=== PATIENT | female | born 1980 | race American Indian/Alaskan Native ===

== ENCOUNTER 2019-09-06 07:27 | Emergency (ER) | payer BC ==
--- NOTE | 2019-09-06 10:52 | XRay Report ---
CHEST 2 VIEWS INDICATION / CLINICAL INFORMATION: shortness of breath. COMPARISON: None available. FINDINGS: SUPPORT DEVICES: None. HEART / MEDIASTINUM: No significant abnormality. LUNGS / PLEURA: No significant pulmonary or pleural abnormality. No pneumothorax. ADDITIONAL FINDINGS: No significant additional findings. IMPRESSION: 1. No acute findings. Signer Name: Jensen Layne MD Signed: 09/06/2019 10:47 AM Workstation Name: [id number]
[2019-09-06 12:04] LABS: Basophils % (Auto) 0.8 % (0.0-1.8); Eosinophils % (Auto) 0.8 % (0.0-4.3); Hematocrit 41.7 % (30.3-42.9); Lymphocytes % (Auto) 36.4 % (13.4-35.0); Mean Corpuscular HGB Conc 34 % (30-34); Mean Corpuscular Volume 91 fl (79-97); Monocytes # (Auto) 0.4 K/mm3 (0.0-0.8); Monocytes % (Auto) 7.5 % (0.0-7.3); Platelet Count 279 K/mm3 (140-440); Red Blood Count 4.59 M/mm3 (3.65-5.03); Red Cell Distribution Width 13.7 % (13.2-15.2)
[2019-09-06 12:07] LABS: BUN/Creatinine Ratio 20; Blood Urea Nitrogen 12 mg/dL (7-17)
[2019-09-06 12:08] LABS: Alanine Aminotransferase 20 units/L (7-56); Albumin 4.6 g/dL (3.9-5); Calcium 9.7 mg/dL (8.4-10.2); Hemolysis Index 6
[2019-09-06] MEDS ORDERED: hydrALAZINE 25 MG TAB PO ONE (13:08)
[2019-09-06 13:14] LABS: HCG Qualitative,Urine Negative (Negative)
--- NOTE | 2019-09-06 13:18 | Emergency Department Report ---
ED Shortness of Breath HPI - General Chief Complaint: Dyspnea/Respdistress Stated Complaint: SOB Time Seen by Provider: 09/06/19 12:46 Source: patient Mode of arrival: Ambulatory Limitations: No Limitations - History of Present Illness Initial Comments: 39-year-old -Gabonese female patient with history of hypertension presents with complaints of shortness of breath and chest tightness for the past 2 days. She denies any cough, fever/chills/sweats, or nausea/vomiting/abdominal pain. She also denies any pain in her chest, however states it just feels tight. Patient states she did have a recent 4-hour flight from [place] 1 week ago and admits to mild intermittent chronic pedal edema, however denies any leg pain, history of DVT/PE/CO/CVA, hormone use, or hemoptysis. Patient states that shortness of breath occurs both at rest and with exertion and is intermittent. Blood pressure noted to be elevated at 169/105; patient states she is compliant with her blood pressure medications and that her pressure normally runs 130/90. She admits to a 7/10 headache in severity currently, but denies any dizziness, vision changes, difficulty with speech, numbness/tingling/weakness in her limbs, or confusion. - Related Data Allergies Allergy/AdvReac Type Severity Reaction Status Date / Time No Known Allergies Allergy Unverified 09/06/19 07:43 ED Review of Systems ROS: Stated complaint: SOB Other details as noted in HPI Constitutional: denies: chills, diaphoresis, fever, malaise, weakness Eyes: denies: eye pain, vision change ENT: denies: throat pain Respiratory: shortness of breath, SOB with exertion, SOB at rest. denies: cough Cardiovascular: denies: chest pain, palpitations Gastrointestinal: denies: nausea, vomiting, diarrhea Genitourinary: denies: frequency Skin: denies: rash, lesions Neurological: headache. denies: weakness, numbness, paresthesias, confusion, abnormal gait Psychiatric: denies: anxiety ED Past Medical Hx - Past Medical History Previous Medical History?: Yes Hx Hypertension: Yes - Surgical History Past Surgical History?: No - Social History Smoking Status: Never Smoker Substance Use Type: Prescribed ED Physical Exam - General Limitations: No Limitations General appearance: alert, in no apparent distress, obese - Head Head exam: Present: atraumatic, normocephalic - Eye Eye exam: Present: normal appearance - ENT ENT exam: Present: mucous membranes moist - Neck Neck exam: Present: normal inspection, full ROM - Respiratory Respiratory exam: Present: normal lung sounds bilaterally. Absent: respiratory distress, wheezes, rales, rhonchi, chest wall tenderness - Cardiovascular Cardiovascular Exam: Present: regular rate, normal rhythm. Absent: systolic murmur, diastolic murmur, rubs, gallop - GI/Abdominal GI/Abdominal exam: Present: soft, normal bowel sounds - Extremities Exam Extremities exam: Absent: calf tenderness (No swelling noted bilaterally in legs or feet) - Neurological Exam Neurological exam: Present: alert, oriented X3, normal gait. Absent: motor sensory deficit - Psychiatric Psychiatric exam: Present: normal affect, normal mood - Skin Skin exam: Present: warm, dry, intact, normal color. Absent: rash, cyanosis, diaphoretic, petechiae ED Course Vital Signs 09/06/19 09/06/19 09/06/19 07:38 11:38 13:02 Temperature 98.3 F Pulse Rate 93 H Respiratory 18 17 Rate Blood Pressure 169/105 183/123 Blood Pressure [Left] O2 Sat by Pulse 99 99 Oximetry 09/06/19 09/06/19 13:23 14:27 Temperature Pulse Rate 85 82 Respiratory 18 Rate Blood Pressure 183/123 Blood Pressure 138/99 [Left] O2 Sat by Pulse 100 Oximetry ED Medical Decision Making - Lab Data Result diagrams: 09/06/19 11:21 09/06/19 11:21 Critical care attestation.: If time is entered above; I have spent that time in minutes in the direct care of this critically ill patient, excluding procedure time. ED Disposition Clinical Impression: Shortness of breath, Uncontrolled hypertension Disposition: DC-01 TO HOME OR SELFCARE Is pt being admited?: No Condition: Stable Instructions: COVID-19, Dyspnea (ED), Hypertension (ED) Referrals: PRIMARY CARE,MD [Primary Care Provider] - 2-3 Days Forms: Work/School Release Form(ED)
[2019-09-06 14:28] VITALS: BP 138/99
== END 2019-09-06 14:53 | disposition home or self-care (01) ==
LOC: ED 07:27
DX: R06.02 Shortness of breath (principal); I10 Essential (primary) hypertension
CPT/HCPCS: 36415; 71046; 80053; 81025; 83880; 84484; 85025; 85379; 93005

== ENCOUNTER 2020-04-29 12:20 | Emergency (ER) | payer BC ==
[2020-04-29 12:49] VITALS: BP 143/84
--- NOTE | 2020-04-29 13:38 | Emergency Department Report ---
ED Fall HPI - General Chief Complaint: Extremity Injury, Upper Stated Complaint: RT ARM INJURY Time Seen by Provider: 04/29/20 13:28 Source: patient Mode of arrival: Ambulatory - History of Present Illness Initial Comments: 40-year-old obese F Croatian female excellently tripped over comforter landing onto her stretch her right hand causing pain to the left forearm and elbow and lower humerus region. Reports minimal swelling but does have pain with palpation and when attempts to extend the arm fully also pain with with opposed supination and pronation. Complaint: fall Fall Witnessed: no Place Fall Occurred: home Loss of Consciousness: none Prolonged Down Time?: no Symptoms Prior to Fall: none Location - Extremities: Right: Arm, Elbow, Forearm - Related Data Previous Rx's Medication Instructions Recorded Last Taken Type Acetaminophen/Codeine [Tylenol #3] 1 tab PO Q6H PRN #20 tab 04/29/20 Unknown Rx Allergies Allergy/AdvReac Type Severity Reaction Status Date / Time No Known Allergies Allergy Unverified 09/06/19 07:43 ED Review of Systems ROS: Stated complaint: RT ARM INJURY Other details as noted in HPI Comment: All other systems reviewed and negative ED Past Medical Hx - Past Medical History Hx Hypertension: Yes - Surgical History Past Surgical History?: No - Social History Smoking Status: Never Smoker Substance Use Type: None - Medications Home Medications: Home Medications Medication Instructions Recorded Confirmed Last Taken Type Acetaminophen/Codeine [Tylenol #3] 1 tab PO Q6H PRN #20 tab 04/29/20 Unknown Rx ED Physical Exam - General Limitations: No Limitations General appearance: alert, in no apparent distress - Head Head exam: Present: atraumatic, normocephalic - Eye Eye exam: Present: normal appearance, PERRL, EOMI Pupils: Present: normal accommodation - ENT ENT exam: Present: normal exam, normal orophraynx, mucous membranes moist - Neck Neck exam: Present: normal inspection, full ROM - Respiratory Respiratory exam: Present: normal lung sounds bilaterally. Absent: respiratory distress, wheezes, rales, accessory muscle use, decreased breath sounds - Cardiovascular Cardiovascular Exam: Present: regular rate, normal rhythm. Absent: systolic murmur, diastolic murmur, rubs, gallop - GI/Abdominal GI/Abdominal exam: Present: soft, normal bowel sounds. Absent: tenderness, guarding, hyperactive bowel sounds, hypoactive bowel sounds - Extremities Exam Extremities exam: Present: normal inspection, normal capillary refill - Back Exam Back exam: Present: normal inspection, CVA tenderness (R), CVA tenderness (L) - Neurological Exam Neurological exam: Present: alert, oriented X3, CN II-XII intact - Psychiatric Psychiatric exam: Present: normal affect, normal mood - Skin Skin exam: Present: warm, dry, intact, normal color. Absent: rash ED Course Vital Signs 04/29/20 12:45 Temperature 98.9 F Pulse Rate 100 H Respiratory 20 Rate Blood Pressure 143/84 O2 Sat by Pulse 100 Oximetry - Orthopedic Splinting/Casting Injury #1 Side: right Upper Extremity Injury Location: upper arm, elbow Upper Extremity Immobilizer: posterior splint ED Medical Decision Making - Radiology Data Radiology results: report reviewed [facility] [address] [place] [address] XRay Report Signed Patient: JORDYN TORRES MR#: [id number] : 1980 Acct:[id number] Age/Sex: 40 / F ADM Date: 04/29/20 Loc: ED Attending Dr: Ordering Physician: RL SAMSON Date of Service: 04/29/20 Procedure(s): XR humerus 2+V RT Accession Number(s): [id number] cc: RL SAMSON Fluoro Time In Minutes: RIGHT HUMERUS 2 VIEWS RIGHT FOREARM 2 VIEWS INDICATION: fall pain forearm. COMPARISON: None. IMPRESSION: A moderate anterior and posterior joint effusion is identified at the elbow. A subtle nondisplaced radial head fracture is suspected. 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 The humerus and ulna are intact. Signer Name: Ulices Bains Jr, MD Signed: 04/29/2020 2:06 PM Workstation Name: [id number] Transcribed By: TTR Dictated By: ULICES BAINS JR, MD Electronically Authenticated By: ULICES BAINS JR, MD Signed Date/Time: 04/29/201405 DD/ 00 TD/TT: - Medical Decision Making Pulmonary female status post fall onto the right arms resulting in a root a right radial head fracture. 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 Will place in a posterior long-arm splint and sling have follow-up with orthopedic for definitive treatment. No signs of any other osseous injuries or internal derangement on examination Critical care attestation.: If time is entered above; I have spent that time in minutes in the direct care of this critically ill patient, excluding procedure time. ED Disposition Clinical Impression: Right radial head fracture Disposition: DC- TO HOME OR SELFCARE Is pt being admited?: No Does the pt Need Aspirin: No Condition: Stable Instructions: Cast or Splint Care, Adult, Ibbg-up-Gtni, Radial Head Fracture Prescriptions: Acetaminophen/Codeine [Tylenol #3] 1 tab PO Q6H PRN #20 tab PRN Reason: Pain Referrals: BEN HARRISON MD [Staff Physician] - 3-5 Days
--- NOTE | 2020-04-29 14:11 | XRay Report ---
RIGHT HUMERUS 2 VIEWS RIGHT FOREARM 2 VIEWS INDICATION: fall pain forearm. COMPARISON: None. IMPRESSION: A moderate anterior and posterior joint effusion is identified at the elbow. A subtle no ndisplaced radial head fracture is suspected. Mild osteoarthritic changes are identified at the elbo w. The humerus and ulna are intact. Signer Name: Ulices Bains Jr, MD Signed: 04/29/2020 2:06 PM Workstation Name: [id number]
== END 2020-04-29 14:58 | disposition home or self-care (01) ==
LOC: ED 12:20
DX: S52.124A Nondisplaced fracture of head of right radius, initial encounter for closed fracture (principal); I10 Essential (primary) hypertension; Z79.899 Other long term (current) drug therapy; W01.0XXA Fall on same level from slipping, tripping and stumbling without subsequent striking against object, initial encounter; Y93.89 Activity, other specified; Y92.009 Unspecified place in unspecified non-institutional (private) residence as the place of occurrence of the external cause; Y99.8 Other external cause status

== ENCOUNTER 2020-06-18 09:52 | Outpatient (CLI) | payer BC ==
--- NOTE | 2020-06-18 11:45 | XRay Report ---
RIGHT ELBOW 3 VIEWS INDICATION / CLINICAL INFORMATION: NONDISPLACED FRACTURE OF HEAD OF RIGHT RADIUS, S52.124A. COMPARISON: None available. FINDINGS: Moderately displaced fracture of the radial head. A joint effusion is present. Signer Name: Bassam Fernández MD FACR Signed: 06/18/2020 11:41 AM Workstation Name: [id number]
== END 2020-06-18 09:53 | disposition home or self-care (01) ==
LOC: XRAY 09:52
PROVIDERS: ATTEND Orthopaedic Surgery
DX: S52.124A Nondisplaced fracture of head of right radius, initial encounter for closed fracture (principal); M25.421 Effusion, right elbow; X58.XXXA Exposure to other specified factors, initial encounter; Y93.89 Activity, other specified; Y92.89 Other specified places as the place of occurrence of the external cause; Y99.8 Other external cause status